=== PATIENT | female | born 1945 | race Caucasian/White ===

== ENCOUNTER → 2018-01-11 | Outpatient (CLI) | payer OTHER ==
[~2018-01-11] MED LIST: ALPR0.5T PO; FAMO1TAB48 PO; HYZ/10015 PO; LOVA40TA3 PO; NAPR-1159 PO; SERT100T PO; TOPI25TA10 PO; WLC625 PO
== END ==
LOC: C.LABMFLN 13:39
PROVIDERS: ATTEND Family Medicine
DX: R30.0 Dysuria (principal)

== ENCOUNTER → 2018-01-14 | Outpatient (CLI) | payer OTHER ==
[2018-01-14 17:40] LABS: BASO % 0.7 %; BASO ABS # 0.03 K/uL (0-0.2); EOS % 2.5 %; EOS ABS # 0.11 K/uL (0-0.5); HEMATOCRIT 39.4 % (37-47); HEMOGLOBIN 12.5 g/dL (12.0-16.0); LYMPH % 37.9 %; LYMPH ABS # 1.64 K/uL (1.2-3.4); MEAN CELL VOLUME 92.7 fL (80-100); MEAN CORPUSCULAR HEMOGLOBIN 29.4 pg (25-34); MEAN CORPUSCULAR HGB CONC 31.7 g/dl (32-36); MEAN PLATELET VOLUME 10.5 fL (7.4-10.4); MONO % 12.5 %; MONO ABS # 0.54 K/uL (0.11-0.59); NEUT % 46.4 %; NEUT ABS # 2.01 K/uL (1.4-6.5); PLATELET COUNT 208 K/uL (130-400); RED CELL DISTRIBUTION WIDTH CV 13.9 % (11.5-14.5); RED CELL DISTRIBUTION WIDTH SD 47.4 fL (36.4-46.3); WHITE BLOOD COUNT 4.33 K/uL (4.8-10.8)
[2018-01-14 19:25] LABS: ALBUMIN 3.8 gm/dl (3.4-5.0); ALT/SGPT 15 U/L (12-78); BLOOD UREA NITROGEN 28 mg/dl (7-18); CALCIUM 8.9 mg/dl (8.5-10.1); CARBON DIOXIDE 28 mmol/L (21-32); CHOLESTEROL 282 mg/dl (0-200); GLUCOSE 89 mg/dl (70-99); SODIUM 139 mmol/L (136-145)
[2018-01-14 19:29] LABS: ALKALINE PHOSPHATASE 44 U/L (45-117); AST/SGOT 12 U/L (15-37); LDL CHOLESTEROL CALCULATED 216 mg/dl; TOTAL PROTEIN 7.6 gm/dl (6.4-8.2)
== END | disposition home or self-care (01) ==
LOC: C.LABMFLN 13:26
PROVIDERS: ATTEND Family Medicine
DX: R30.0 Dysuria (principal); I10 Essential (primary) hypertension; E78.5 Hyperlipidemia, unspecified; G43.009 Migraine without aura, not intractable, without status migrainosus

== ENCOUNTER → 2018-01-22 | Outpatient (CLI) | payer OTHER ==
[~2018-01-22] MED LIST changes: +GADAVIST IV PRN
--- NOTE | 2018-01-22 12:46 | DIAGNOSTIC IMAGING REPORT ---
BRAIN COMBO CLINICAL HISTORY: MIGRAINE W/OUT AURA,NOT INTRACTABLE COMPARISON STUDY: No previous studies for comparison. TECHNIQUE: Utilizing a 1.5 [place] magnet and dedicated coil, multiplanar, multiecho imaging of the brain was performed pre and postcontrast administration. IV administration of 9 mL of Gadavist contrast was uneventful. FINDINGS: Diffusion images are negative for an acute ischemic event. Signal characteristics of the cerebellar as well as cerebral hemispheres are unremarkable. Normal chronic small vessel change. The ventricular system is midline. Sella and parasellar regions are unremarkable. No evidence for abnormal postcontrast enhancement. IMPRESSION: Negative study for age The above report was generated using voice recognition software. It may contain grammatical, syntax or spelling errors. Electronically signed by: Mal Khan M.D. 01/22/2018 12:44 PM Dictated Date/Time: 01/22/2018 12:42 PM
--- NOTE | 2018-01-22 12:50 | DIAGNOSTIC IMAGING REPORT ---
MRA HEAD WITHOUT CONTRAST HISTORY: Headache MIGRAINE W/OUT AURA,NOT INTRACTABLE TECHNIQUE: 3-D [id number] MRA of the brain was performed without contrast. COMPARISON STUDY: None. FINDINGS: Visualized intracranial internal carotid arteries, distal vertebral arteries, and basilar artery are widely patent. There is no significant stenosis, occlusion, or aneurysm seen within the bilateral ACAs, MCAs, or cheese maker. Apparent mild distention of the distal aspect of the basilar artery. This appears to represent, however foci of exiting vasculature. IMPRESSION: No significant stenosis, occlusion, or aneurysm within the enterprise of [employer]. The above report was generated using voice recognition software. It may contain grammatical, syntax or spelling errors. Electronically signed by: Mal Khan M.D. 01/22/2018 12:48 PM Dictated Date/Time: 01/22/2018 12:46 PM
== END | disposition home or self-care (01) ==
LOC: C.MRI 11:28
PROVIDERS: ATTEND Family Medicine
DX: G43.009 Migraine without aura, not intractable, without status migrainosus (principal)